=== PATIENT | male | born 1955 ===

== ENCOUNTER 2019-01-28 18:05 | Emergency (ER) | payer OTHER ==
[2019-01-28] MEDS ORDERED: Ketorolac Tromethamine 30 MG/ML VIAL ONE (19:20)
--- NOTE | 2019-01-28 19:35 | CT ---
CT BRAIN NONCONTRAST: DATE: 01/28/2019 HISTORY: 63-year-old male status post head trauma from fall. FINDINGS: There is no evidence of acute intra-axial or extra-axial hemorrhage. There is no midline shift or any other mass effect. There is no extra-axial fluid collection. There is no evidence of obstructive hydrocephalus. Calvarium is intact. IMPRESSION: No acute intracranial findings.
--- NOTE | 2019-01-28 19:38 | CT ---
CT maxillofacial noncontrast: DATE: 01/28/2019 HISTORY: 63-year-old male status post acute facial trauma with jaw pain after fall. FINDINGS: The mandible and the rest of the facial bones are intact. TMJs are intact, with no fracture. The orbi ts are clear. The paranasal sinuses and the bilateral tympanomastoid cavities are clear. The right submandibular gland is absent. IMPRESSION: Negative
--- NOTE | 2019-01-28 19:43 | CT ---
CT lumbar spine noncontrast: DATE: 01/28/2019 HISTORY: 63-year-old male with traumatic low back pain after fall FINDINGS: The vertebral body heights are maintained. No spondylolisthesis or spondylolysis. Mild disc space tasneem rowing at L5-S1. No high-grade disc space narrowing at any level. Mild disc bulges at L3-4, L4-5, and L5-S1. No hematoma in the perivertebral space. Mild to moderate neural foraminal stenosis at L4-5 bilaterally. Moderate bilateral neural foraminal stenosis L5-S1. Alignment is normal. No scoliosis. 5 lumbar-type vertebrae. IMPRESSION: 1. No compression fracture. 2. Mild lumbar spondylosis.
== END 2019-01-28 20:21 | disposition home or self-care (01) ==
LOC: ERS 18:05
DX: M54.5 Low back pain (principal); W18.30XA Fall on same level, unspecified, initial encounter
CPT/HCPCS: 70450; 70486; 72131; 96372; J1885